=== PATIENT | female | born 1990 | race Two or more races ===

== ENCOUNTER 2021-02-04 12:29 | Outpatient (CLI) | payer SELFPAY ==
[~2021-02-04] VITALS: Ht 154.9 cm; Wt 218.0 kg
[~2021-02-04 12:29] MED LIST: CALC-780 PO; FERR325T17 PO; IBUP-1222 PO; PREN-53 PO
[2021-02-04 13:31] VITALS: BP 125/63
== END 2021-02-04 14:10 | disposition home or self-care (01) ==
LOC: LDOP 12:29
PROVIDERS: ATTEND Obstetrics & Gynecology
DX: O46.93 Antepartum hemorrhage, unspecified, third trimester (principal); Z3A.37 37 weeks gestation of pregnancy
CPT/HCPCS: 59025

== ENCOUNTER 2021-02-18 12:09 | Inpatient (IN) | payer OTHER ==
[~2021-02-18] VITALS: Ht 154.9 cm; Wt 100.4 kg
[2021-02-18] MEDS ORDERED: OXYTOCIN 30U/ 0.9% NaCL 500ML 500 ML IV ONE (12:30)
[2021-02-18] MEDS ORDERED: CALCIUM CARBONATE 500 MG TAB.CHEW PO PRN ×2 (12:30→19:00)
[2021-02-18] MEDS ORDERED: TERBUTALINE 1 MG/ML, 1ML IVPush PRN (12:30)
[2021-02-18] MEDS ORDERED: FENTANYL PF 100 MCG/2ML IV PRN (12:30)
[2021-02-18] MEDS ORDERED: D5%-LACTATED RINGERS 1,000 ML IV SCH (12:30)
[2021-02-18] MEDS ORDERED: TERBUTALINE 1 MG/ML, 1ML SQ PRN (12:30)
[2021-02-18] MEDS ORDERED: ONDANSETRON 2MG/ML, 2ML IVPush PRN (12:30)
[2021-02-18] MEDS ORDERED: FENTANYL PF 100 MCG/2ML IVPush PRN (12:30)
[2021-02-18] MEDS ORDERED: METOCLOPRAMIDE 5 MG/ML, 2ML IVPush PRN (12:30)
[2021-02-18 12:49] LABS: MEAN CORPUSCULAR HGB CONC 33.6 g/dL (32.4-35.8); PLATELET COUNT 344 x10^3/uL (130-400); RED BLOOD COUNT 3.93 x10^6/uL (3.82-5.3); RED CELL DISTRIBUTION WIDTH 15.3 % (9.6-15.2)
[2021-02-18] MEDS ORDERED: LIDOCAINE 1%, 20ML ONE (13:07)
[2021-02-18] MEDS ORDERED: NEWBORN KIT ONE (13:07)
[2021-02-18] MEDS ORDERED: MISOPROSTOL 200 MCG TABLET ONE (13:08)
[2021-02-18 13:11] LABS: BAND#(MANUAL) 0.17 x10^3/uL; BANDS%(MANUAL) 2 % (0-7); LYMPH#(MANUAL) 1.29 x10^3/uL (1-3.4); LYMPHS% (MANUAL) 15 % (22-44); METAMYELOCYTES# (MANUAL) 0.09 x10^3/uL (0-0); METAMYELOCYTES% (MANUAL) 1 % (0-1); MONOS#(MANUAL) 0.69 x10^3/uL (0.3-2.7); MONOS% (MANUAL) 8 % (2-9); MYELOCYTES# (MANUAL) 0.09 x10^3/uL (0-0); MYELOCYTES% (MANUAL) 1 % (0-0); SEG#(MANUAL) 6.28 x10^3/uL (1.8-6.8); SEGS% (MANUAL) 73 % (42-75)
[2021-02-18 13:12] LABS: <PLATELET ESTIMATE> ADEQUATE; <PLT MORPHOLOGY> NORMAL PLT MORPH; <RBC MORPHOLOGY> NORMAL
[2021-02-18] MEDS: LACTATED RINGERS 1,000 ML IV SCH ×2 (13:15→15:38)
[2021-02-18] MEDS ORDERED: OXYTOCIN 30U/ 0.9% NaCL 500ML 500 ML IV PRN (13:30)
[2021-02-18] MEDS ORDERED: BUPIVACAINE 0.25% ONE (16:37)
[2021-02-18] MEDS ORDERED: FENTANYL/BUPIV./NS/PF 250 ML EPIDCONT ONE (16:37)
[2021-02-18] MEDS ORDERED: LACTATED RINGERS 1,000 ML IVBOLUS PRN (17:00)
[2021-02-18] MEDS ORDERED: FENTANYL/BUPIV./NS/PF 250 ML EPIDCONT SCH (17:00)
[2021-02-18] MEDS ORDERED: LACTATED RINGERS 1,000 ML IV SCH (17:00)
[2021-02-18] MEDS ORDERED: NALOXONE 0.4 MG/ML, 1ML IVPush PRN (17:00)
[2021-02-18] MEDS: EPHEDRINE 50 MG/ML, 1ML IVPush PRN ×2 (17:28→17:37)
[2021-02-18] MEDS ORDERED: OXYTOCIN 10 UNITS/ML, 1ML IM PRN (19:00)
[2021-02-18] MEDS ORDERED: SIMETHICONE 80 MG CHEW TAB PO PRN (19:00)
[2021-02-18] MEDS ORDERED: OXYTOCIN 30U/ 0.9% NaCL 500ML 500 ML IV SCH (19:00)
[2021-02-18] MEDS ORDERED: OXYcodone IR 5MG TABLET PO PRN (19:00)
[2021-02-18] MEDS ORDERED: METHYLERGONOVINE 0.2 MG/ML IM PRN (19:00)
[2021-02-18] MEDS ORDERED: ACETAMINOPHEN 325 MG TABLET PO PRN ×2 (19:00)
[2021-02-18] MEDS ORDERED: OXYcodone/APAP 5/325MG TABLET PO PRN (19:00)
[2021-02-18] MEDS ORDERED: ONDANSETRON 2MG/ML, 2ML IV PRN (19:00)
[2021-02-18] MEDS ORDERED: CARBOPROST TROMETHAMINE 250 MCG/ML, 1ML IM PRN (19:00)
[2021-02-18] MEDS ORDERED: MAGNESIUM HYDROXIDE 8%, 30ML UDC PO PRN (19:00)
[2021-02-18] MEDS ORDERED: DOCUSATE 100 MG CAPSULE PO PRN (19:00)
[2021-02-18 21:10] VITALS: BP 102/53
[2021-02-19 01:30] VITALS: BP 101/56
[2021-02-19 02:35] LABS: BASOPHILS % (AUTO) 0 % (0-1); EOSINOPHILS % (AUTO) 0 % (1-7); LYMPHOCYTES % (AUTO) 15 % (22-44); MEAN CORPUSCULAR HEMOGLOBIN 26.7 pg (27.0-34.8); MEAN CORPUSCULAR HGB CONC 33.1 g/dL (32.4-35.8); MEAN PLATELET VOLUME 7.1 fL (7.4-10.4); MONOCYTES % (AUTO) 7 % (2-9); NEUTROPHILS % (AUTO) 77 % (42-75); PLATELET COUNT 326 x10^3/uL (130-400); RED BLOOD COUNT 3.91 x10^6/uL (3.82-5.3); RED CELL DISTRIBUTION WIDTH 14.8 % (9.6-15.2)
[2021-02-19 07:16] VITALS: BP 103/70
[2021-02-19] MEDS: IBUPROFEN 800 MG TABLET PO PRN ×2 (07:51→18:32)
[2021-02-19] MEDS ORDERED: PRENATAL VIT/IRON/FA 1 EACH TABLET PO SCH (09:00)
[2021-02-19 12:00] VITALS: BP 99/60
[2021-02-19 15:33] VITALS: BP 103/71
== END 2021-02-19 19:30 | disposition home or self-care (01) | DRG 807 ==
LOC: LDIP 12:09 → 2NE 20:49 → 2NW 02-19 04:06
PROVIDERS: ADMIT Obstetrics & Gynecology; ATTEND Obstetrics & Gynecology
PROC: 10E0XZZ Delivery of Products of Conception, External Approach (ICD-10-PCS; principal; 2021-02-18)
PROC: 3E0R3BZ Introduction of Anesthetic Agent into Spinal Canal, Percutaneous Approach (ICD-10-PCS; 2021-02-18)
PROC: 00HU33Z Insertion of Infusion Device into Spinal Canal, Percutaneous Approach (ICD-10-PCS; 2021-02-18)
PROC: 0HQ9XZZ Repair Perineum Skin, External Approach (ICD-10-PCS; 2021-02-18)
PROC: 10907ZC Drainage of Amniotic Fluid, Therapeutic from Products of Conception, Via Natural or Artificial Opening (ICD-10-PCS; 2021-02-18)
DX: O70.0 First degree perineal laceration during delivery (principal); Z37.0 Single live birth; Z20.822 Contact with and (suspected) exposure to COVID-19; Z3A.39 39 weeks gestation of pregnancy
CPT/HCPCS: 36415; 85025; 86592; 86850; 86900; 87635; G0378; J2590; J7120